=== PATIENT | female | born 1945 | race Caucasian/White ===

== ENCOUNTER 2017-06-23 09:45 | Outpatient (CLI) | payer MEDICARE, BC ==
[2017-06-23] VITALS (14 sets, daily range): BP systolic 133–170; BP diastolic 57–91
[~2017-06-23] VITALS: Ht 160 cm; Wt 75.3 kg
[2017-06-23 10:37] LABS: BASO # 0.1 x10^3/uL (0.0-0.2); BASO % 1 % (0-3); EOS % 2 % (0-3); HEMOGLOBIN 15.3 g/dL (12.0-15.5); LYMPH # 1.8 x10^3/uL (1.0-4.8); LYMPH % 22 % (24-48); MEAN CORPUSCULAR HEMOGLOBIN 31 pg (25-35); MEAN CORPUSCULAR HGB CONC 33 g/dL (31-37); MEAN CORPUSCULAR VOLUME 92 fL (79-100); MONO % 7 % (0-9); NEUT % 68 % (31-73); PLATELET COUNT 288 x10^3/uL (140-400); RED CELL DISTRIBUTION WIDTH 13.3 % (11.5-14.5); WHITE BLOOD COUNT 8.1 x10^3/uL (4.0-11.0)
[2017-06-23 10:44] LABS: CALCIUM 9.1 mg/dL (8.5-10.1); CREATININE 0.6 mg/dL (0.6-1.0); GFR 98.3; POTASSIUM 3.9 mmol/L (3.5-5.1)
[2017-06-23] MEDS ORDERED: ASPI-612 PO (10:45)
[2017-06-23] MEDS ORDERED: TIOT18CA IH (10:45)
[2017-06-23] MEDS ORDERED: AMLO10TA2 PO (10:45)
[2017-06-23] MEDS ORDERED: MULT-697 PO (10:45)
[2017-06-23] MEDS ORDERED: ALEN70TA3 PO (10:45)
[2017-06-23] MEDS ORDERED: CALC-109 PO (10:45)
[2017-06-23] MEDS ORDERED: ATOR20TA58 PO (10:45)
[2017-06-23 10:51] LABS: ALBUMIN 4.1 g/dL (3.4-5.0); TOTAL BILIRUBIN 0.4 mg/dL (0.2-1.0); TOTAL PROTEIN 8.1 g/dL (6.4-8.2)
[2017-06-23 11:00] LABS: PROTHROMBIN TIME PATIENT 12.5 SEC (11.7-14.0)
[2017-06-23] MEDS ORDERED: LIDOCAINE WITH 8.4% SOD BICARB 3 ML DISP.SYRIN. IJ ONE ×2 (11:11→12:15)
[2017-06-23] MEDS ORDERED: fentaNYL PF VIAL 100 MCG/2 ML VIAL ONE (11:33)
[2017-06-23] MEDS ORDERED: NALOXONE 0.4 MG/ML VIAL. ONE (11:33)
[2017-06-23] MEDS ORDERED: FLUMAZENIL 0.5 MG/5 ML VIAL. IV ONE (11:33)
[2017-06-23] MEDS ORDERED: MIDAZOLAM HCL/PF 2 MG/2 ML VIAL. ONE (11:34)
[2017-06-23] MEDS ORDERED: MIDAZOLAM HCL/PF 2 MG/2 ML VIAL. IV ONE (12:15)
[2017-06-23] MEDS ORDERED: fentaNYL PF VIAL 100 MCG/2 ML VIAL IV ONE (12:15)
--- NOTE | 2017-06-23 17:19 | RAD ---
CT-guided biopsy of expansile lesion, right rib. 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 Discussion: The risks and benefits of the procedure discussed the patient. Informed consent was obtained. The patient was brought to the CT scanner and placed in the prone position. Timeout procedure was performed. The right chest was prepped and draped using sterile barrier technique. All elements of maximal sterile barrier technique including the use of a cap, mask, sterile gown, sterile gloves, large sterile sheet, appropriate hand hygiene, and 2% chlorhexidine for cutaneous antisepsis (or acceptable alternative antiseptic per current guidelines) were followed for this procedure. CT imaging was obtained redemonstrating expansile lesion in the right sixth rib laterally. Once an appropriate site for skin entry been selected 1% lidocaine without epinephrine was administered for local anesthesia. A 17-gauge was advanced into the lesion. Multiple core biopsies were obtained. Relatively scant material was collected, however given size of lesion in proximity to the lung larger, more aggressive biopsy devices could not safely be used. The needle was removed and manual pressure held to achieve hemostasis. Follow-up CT imaging demonstrated no immediate complications. Impression: CT-guided biopsy expansile lesion right sixth rib. PQRS Compliance Statement: One or more of the following individualized dose reduction techniques were utilized for this examination: 1. Automated exposure control 2. Adjustment of the mA and/or kV according to patient size 3. Use of iterative reconstruction technique
== END 2017-06-23 14:00 | disposition home or self-care (01) ==
LOC: INTRAD 09:45
PROVIDERS: ATTEND Internal Medicine Critical Care Medicine
DX: M89.9 Disorder of bone, unspecified (principal); E78.00 Pure hypercholesterolemia, unspecified; I25.10 Atherosclerotic heart disease of native coronary artery without angina pectoris; I10 Essential (primary) hypertension; F17.200 Nicotine dependence, unspecified, uncomplicated; J43.9 Emphysema, unspecified; Z79.01 Long term (current) use of anticoagulants; Z98.51 Tubal ligation status
CPT/HCPCS: 20220; 36415; 77012; 80053; 85025; 85610; 99152; 99153; J2250; J3010

== ENCOUNTER → 2017-07-20 | Outpatient (CLI) | payer MEDICARE, BC | END | disposition home or self-care (01) | LOC: PETSC 15:38 | DX: C79.51 Secondary malignant neoplasm of bone (principal); C34.90 Malignant neoplasm of unspecified part of unspecified bronchus or lung | CPT/HCPCS: 78815; A9552 ==

== ENCOUNTER → 2017-07-21 | Outpatient (CLI) | payer MEDICARE, BC ==
[2017-07-21] MEDS: GADOBUTROL 7.5 MMOL/7.5 ML VIAL IV (08:52)
== END | disposition home or self-care (01) ==
LOC: MRI 08:55
DX: C34.31 Malignant neoplasm of lower lobe, right bronchus or lung (principal); I73.89 Other specified peripheral vascular diseases; R90.82 White matter disease, unspecified
CPT/HCPCS: 70553; A9585

== ENCOUNTER → 2017-07-24 | Outpatient (CLI) | payer MEDICARE, BC | END | disposition home or self-care (01) | LOC: MAMMO 10:59 | DX: Z12.31 Encounter for screening mammogram for malignant neoplasm of breast (principal) | CPT/HCPCS: 77067 ==

== ENCOUNTER → 2017-07-27 | Outpatient (CLI) | payer MEDICARE, BC | END | disposition home or self-care (01) | LOC: MAMMO 12:07 | DX: R92.8 Other abnormal and inconclusive findings on diagnostic imaging of breast (principal) | CPT/HCPCS: 77065 ==

== ENCOUNTER 2017-08-09 07:37 | Outpatient (CLI) | payer MEDICARE, BC ==
[2017-08-09 08:04] LABS: ADD MAN DIFF? NO
[2017-08-09 08:19] LABS: BASO # 0.1 x10^3/uL (0.0-0.2); BASO % 1 % (0-3); EOS # 0.2 x10^3/uL (0.0-0.7); EOS % 2 % (0-3); HEMATOCRIT 41.8 % (36.0-47.0); HEMOGLOBIN 13.9 g/dL (12.0-15.5); LYMPH # 1.7 x10^3/uL (1.0-4.8); LYMPH % 20 % (24-48); MEAN CORPUSCULAR HEMOGLOBIN 30 pg (25-35); MEAN CORPUSCULAR HGB CONC 33 g/dL (31-37); MEAN CORPUSCULAR VOLUME 91 fL (79-100); MONO # 0.6 x10^3/uL (0.0-1.1); MONO % 8 % (0-9); NEUT # 5.7 x10^3uL (1.8-7.7); NEUT % 69 % (31-73); PLATELET COUNT 262 x10^3/uL (140-400); RED BLOOD COUNT 4.59 x10^6/uL (3.50-5.40); RED CELL DISTRIBUTION WIDTH 13.3 % (11.5-14.5); WHITE BLOOD COUNT 8.3 x10^3/uL (4.0-11.0)
[2017-08-09 08:25] LABS: PARTIAL THROMBOPLASTIN TIME 41 SEC (24-38); PROTHROMBIN TIME PATIENT 12.3 SEC (11.7-14.0)
[2017-08-09] MEDS ORDERED: LIDOCAINE WITH 8.4% SOD BICARB 3 ML DISP.SYRIN. ×4 (09:18→09:48)
[2017-08-09] MEDS ORDERED: fentaNYL PF VIAL 100 MCG/2 ML VIAL ×2 (09:31)
[2017-08-09] MEDS ORDERED: NALOXONE 0.4 MG/ML VIAL. ×2 (09:31)
[2017-08-09] MEDS ORDERED: FLUMAZENIL 0.5 MG/5 ML VIAL. IV ×2 (09:31)
[2017-08-09] MEDS ORDERED: MIDAZOLAM HCL/PF 2 MG/2 ML VIAL. ×2 (09:31)
[2017-08-09] MEDS: MIDAZOLAM HCL/PF 2 MG/2 ML VIAL. IV ×2 (10:06)
[2017-08-09] MEDS: fentaNYL PF VIAL 100 MCG/2 ML VIAL IV ×2 (10:06)
[2017-08-09] MEDS: LIDOCAINE WITH 8.4% SOD BICARB 3 ML DISP.SYRIN. IJ ×2 (10:07)
== END 2017-08-09 11:05 | disposition home or self-care (01) ==
LOC: INTRAD 07:37
DX: M89.9 Disorder of bone, unspecified (principal); Z85.3 Personal history of malignant neoplasm of breast; E78.00 Pure hypercholesterolemia, unspecified; I25.10 Atherosclerotic heart disease of native coronary artery without angina pectoris; I10 Essential (primary) hypertension; F17.200 Nicotine dependence, unspecified, uncomplicated; Z98.51 Tubal ligation status; Z79.01 Long term (current) use of anticoagulants
CPT/HCPCS: 20220; 36415; 77012; 81325; 85025; 85610; 85730; 88271; 88274; 88275; 88305; 88311; 88360; 99152; 99153; J2250; J3010

== ENCOUNTER 2017-08-24 06:35 | Outpatient (CLI) | payer MEDICARE, BC ==
[2017-08-24 07:13] LABS: ADD MAN DIFF? NO
[2017-08-24 07:18] LABS: BASO % 0 % (0-3); EOS # 0.1 x10^3/uL (0.0-0.7); EOS % 1 % (0-3); HEMATOCRIT 42.8 % (36.0-47.0); HEMOGLOBIN 14.3 g/dL (12.0-15.5); LYMPH % 12 % (24-48); MEAN CORPUSCULAR HEMOGLOBIN 31 pg (25-35); MEAN CORPUSCULAR HGB CONC 34 g/dL (31-37); MEAN CORPUSCULAR VOLUME 91 fL (79-100); MONO # 0.3 x10^3/uL (0.0-1.1); MONO % 4 % (0-9); NEUT # 6.7 x10^3uL (1.8-7.7); NEUT % 83 % (31-73); PLATELET COUNT 257 x10^3/uL (140-400); RED CELL DISTRIBUTION WIDTH 13.4 % (11.5-14.5); WHITE BLOOD COUNT 8.1 x10^3/uL (4.0-11.0)
[2017-08-24 07:30] LABS: PROTHROMBIN TIME PATIENT 12.6 SEC (11.7-14.0)
[2017-08-24 07:51] LABS: ANION GAP 6 (6-14); BLOOD UREA NITROGEN 13 mg/dL (7-20); CARBON DIOXIDE 30 mmol/L (21-32); CHLORIDE 104 mmol/L (98-107); CREATININE 0.7 mg/dL (0.6-1.0); GFR 82.3; GLUCOSE 123 mg/dL (70-99); POTASSIUM 3.8 mmol/L (3.5-5.1); SODIUM 140 mmol/L (136-145)
[2017-08-24] MEDS ORDERED: LIDOCAINE 2%/EPI 1:100,000 20 ML VIAL. ×2 (08:39)
[2017-08-24] MEDS ORDERED: HEPARIN PF 500 UNIT/5 ML DISP.SYRIN. IV ×2 (08:39)
[2017-08-24] MEDS ORDERED: VANCOMYCIN 1GM IVPB FOR OMNI 250 ML ×2 (08:39)
[2017-08-24] MEDS ORDERED: fentaNYL PF VIAL 100 MCG/2 ML VIAL ×2 (08:53)
[2017-08-24] MEDS ORDERED: MIDAZOLAM HCL/PF 2 MG/2 ML VIAL. ×4 (08:53→09:11)
[2017-08-24] MEDS: VANCOMYCIN 1GM IVPB FOR OMNI 250 ML IRR ×2 (09:15)
[2017-08-24] MEDS: LIDOCAINE 2%/EPI 1:100,000 20 ML VIAL. IJ ×2 (09:29)
[2017-08-24] MEDS: MIDAZOLAM HCL/PF 2 MG/2 ML VIAL. IV ×2 (09:31)
[2017-08-24] MEDS: HEPARIN PF 500 UNIT/5 ML DISP.SYRIN. IV ×2 (09:31)
[2017-08-24] MEDS: fentaNYL PF VIAL 100 MCG/2 ML VIAL IV ×2 (09:32)
== END 2017-08-24 11:48 | disposition home or self-care (01) ==
LOC: INTRAD 06:35
DX: C34.90 Malignant neoplasm of unspecified part of unspecified bronchus or lung (principal); I25.10 Atherosclerotic heart disease of native coronary artery without angina pectoris; E78.00 Pure hypercholesterolemia, unspecified; F17.200 Nicotine dependence, unspecified, uncomplicated; J43.9 Emphysema, unspecified; Z98.51 Tubal ligation status; Z79.01 Long term (current) use of anticoagulants
CPT/HCPCS: 36415; 36561; 76937; 77001; 80048; 85025; 85610; 99152; 99153; C1751; C1769; C1892; J0690; J2250; J3010; J3370; J3490

== ENCOUNTER → 2017-10-19 | Outpatient (CLI) | payer MEDICARE, BC | END | disposition home or self-care (01) | LOC: PETSC 07:42 | DX: C34.90 Malignant neoplasm of unspecified part of unspecified bronchus or lung (principal) | CPT/HCPCS: 78815; A9552 ==

== ENCOUNTER → 2017-12-21 | Outpatient (CLI) | payer MEDICARE, BC | END | disposition home or self-care (01) | LOC: PETSC 08:06 | DX: C34.31 Malignant neoplasm of lower lobe, right bronchus or lung (principal); I10 Essential (primary) hypertension; E78.5 Hyperlipidemia, unspecified; E78.00 Pure hypercholesterolemia, unspecified; R53.83 Other fatigue | CPT/HCPCS: 78815; A9552 ==

== ENCOUNTER → 2018-02-22 | Outpatient (CLI) | payer MEDICARE, BC ==
[2017-08-24 11:30] VITALS: BP 153/69
[~2018-02-22] MED LIST: ALEN70TA3 PO; AMLO10TA2 PO; AMLO1TAB14 PO; ASCO-151 PO; ASPI-612 PO; ATOR20TA58 PO; CALC-109 PO; CLON0.1T PO; DEXA4TAB PO; FOLI1TAB16 PO; KRIL1CAP23 PO; LIDO30CR TP; LOSA1TAB25 PO; MULT-697 PO; MV-M1TAB19 PO; ONDA4TAB12 PO; TIOT18CA IH
--- NOTE | 2018-02-22 12:18 | RAD ---
FDG tumor localization scan, PET/CT, 02/22/2018: History: Restaging lung cancer Following IV injection of 14.3 mCi of 18 F-FDG, imaging was performed from the skull base to the proximal thighs. The noncontrast CT component was performed for attenuation correction and anatomic localization purposes rather than for primary diagnosis. The patient's blood glucose level at time of injection was 115 MG/DL. Comparison is made to a study from 12/21/2017. There is a persistent right inferolateral chest wall mass involving 2 ribs. It is of similar size compared to 12/21/2017 exam. The maximum SUV is 19.1, similar to the value of 18.4 obtained on the previous study. The nearby small parenchymal opacity seen on the previous study has decreased in size. It demonstrates a maximum SUV of 2.7 compared to a value of 3.6 on the previous study. It is now semisolid in nature. The small groundglass opacity seen more medially in the right middle lobe on the previous study has also regressed. There is a new focus of hypermetabolic activity along the superior aspect of the right hilum demonstrating maximum SUV of 4.5. No definite underlying node or mass can be from the unopacified vascular structures at the right hilum on the noncontrast CT component. Additional small areas of borderline increased FDG uptake are seen along the inferior aspect of the right hilum demonstrate a maximum SUV of 3.0. The tiny nodule seen medially in the left upper lobe on the previous study has decreased in size. Its maximum SUV is now 1.5 compared to a value of 3.3 on the previous study. Minimally increased FDG uptake has developed in the left lower lobe. The CT component demonstrates only faint ill-defined groundglass type opacity. This is probably an inflammatory finding. Normal GI tract and urinary tract activity is evident in the abdomen pelvis. No hypermetabolic abdominal or pelvic process is seen. No abnormal neck activity is evident. Scattered sclerotic foci in the bones appear unchanged. These do not demonstrate increased FDG uptake. No new hypermetabolic bony metastases are seen. IMPRESSION: 1. Unchanged hypermetabolic right lateral chest wall mass. 2. A nearby mildly hypermetabolic pulmonary nodule has regressed since the 12/21/2017 study. 3. A tiny left upper lobe hypermetabolic nodule has also regressed. 4. New small hypermetabolic focus at the right hilum, probably representing a hypermetabolic lymph node. 5. Stable blastic bony metastases without abnormal FDG uptake.
== END | disposition home or self-care (01) ==
LOC: PETSC 08:37
PROVIDERS: ATTEND Internal Medicine Hematology & Oncology
DX: C34.31 Malignant neoplasm of lower lobe, right bronchus or lung (principal); C79.51 Secondary malignant neoplasm of bone; I10 Essential (primary) hypertension; E78.5 Hyperlipidemia, unspecified; E78.00 Pure hypercholesterolemia, unspecified; J43.9 Emphysema, unspecified; I25.10 Atherosclerotic heart disease of native coronary artery without angina pectoris; R91.1 Solitary pulmonary nodule; Z85.3 Personal history of malignant neoplasm of breast
CPT/HCPCS: 78815; A9552

== ENCOUNTER → 2018-03-19 | Outpatient (CLI) | payer MEDICARE, BC ==
[2017-08-24 11:30] VITALS: BP 153/69
[~2018-03-19] MED LIST changes: -AMLO10TA2 PO; +AMLO10TA6 PO; +CONTRAST GIVEN. MC PRN; +IOHEXOL 300 MG/ML 100ML VIAL. IV ONE
--- NOTE | 2018-03-19 15:45 | RAD ---
PQRS Compliance Statement: One or more of the following individualized dose reduction techniques were utilized for this examination: 1. Automated exposure control 2. Adjustment of the mA and/or kV according to patient size 3. Use of iterative reconstruction technique CT CHEST WITH CONTRAST, PULMONARY ANGIOGRAM History: SOB, lung cancer, currently on treatment. Comparison: CT chests with and without contrast, June 09, 2017. FDG PET/CT, skull base to upper thighs, February 22, 2018. Technique: Helical CT of the chest was performed after the administration of 75 cc of Omnipaque 300 intravenous contrast according to PE protocol. Axial and coronal reconstructions were obtained. 3-D MIP images were constructed to better evaluate the pulmonary arteries. Findings: Pulmonary arteries are adequately opacified. There is no evidence of pulmonary embolism. No thoracic aortic dissection. There is moderate narrowing at the origin of the SMA. There is right chest Port-A-Cath. No mediastinal adenopathy. Coronary artery disease. Cardiac size normal, no pericardial effusion. The central airways are patent. There is moderate centrilobular emphysema. There is mild dependent atelectasis or scarring. There is nodular opacity in the lateral right lower lobe, image 108. The destructive soft tissue density mass of the right lateral sixth rib measures about 3.9 cm AP by 1.7 cm transverse, not significantly change from prior study. Stable nodularity of the right adrenal gland. Unchanged cystic lesion of the pancreas tail. There are sclerotic metastases of the thoracic spine. There is compression fracture of the T5 vertebral body that does not appear acute. IMPRESSION: 1. There is no CT evidence of pulmonary embolus. 2. Destructive soft tissue mass of the right lateral sixth rib is not significantly changed. 3. Osteoblastic bone metastases. 4. Moderate centrilobular emphysema. Electronically signed by: Ady Chavarria MD (03/19/2018 3:42 PM) [id number]
--- NOTE | 2018-03-19 15:51 | RAD ---
PQRS Compliance Statement: One or more of the following individualized dose reduction techniques were utilized for this examination: 1. Automated exposure control 2. Adjustment of the mA and/or kV according to patient size 3. Use of iterative reconstruction technique CT CHEST WITHOUT AND WITH CONTRAST, CT PULMONARY ANGIOGRAM History: SOB, lung cancer, currently on treatment. Comparison: CT chest with and without contrast, June 09, 2017. FDG PET/CT, skull base to upper thighs, February 22, 2018. Technique: Helical CT imaging of the chest is performed without IV contrast. Helical CT of the chest was performed after the administration of 75 cc of Omnipaque 300 intravenous contrast according to PE protocol. Axial and coronal reconstructions were obtained. 3-D MIP images were constructed to better evaluate the pulmonary arteries. Findings: Pulmonary arteries are adequately opacified. There is no evidence of pulmonary embolism. No thoracic aortic dissection. There is no intramural hematoma in the thoracic aorta on the precontrast images. There is moderate narrowing at the origin of the SMA. There is right chest Port-A-Cath. No mediastinal adenopathy. Coronary artery disease. Cardiac size normal, no pericardial effusion. The central airways are patent. There is moderate centrilobular emphysema. There is mild dependent atelectasis or scarring. There is nodular opacity in the lateral right lower lobe, image 108. The destructive soft tissue density mass of the right lateral sixth rib measures about 3.9 cm AP by 1.7 cm transverse, not significantly change from prior study. Stable nodularity of the right adrenal gland. Unchanged cystic lesion of the pancreas tail. There are sclerotic metastases of the thoracic spine. There is compression fracture of the T5 vertebral body that does not appear acute. IMPRESSION: 1. There is no CT evidence of pulmonary embolus. 2. Destructive soft tissue mass of the right lateral sixth rib is not significantly changed. 3. Osteoblastic bone metastases. 4. Moderate centrilobular emphysema. Electronically signed by: Ady hCavarria MD (03/19/2018 3:47 PM) [id number]
== END | disposition home or self-care (01) ==
LOC: CT 14:05
PROVIDERS: ATTEND Internal Medicine Hematology & Oncology
DX: C79.51 Secondary malignant neoplasm of bone (principal); C34.31 Malignant neoplasm of lower lobe, right bronchus or lung; J34.2 Deviated nasal septum; I10 Essential (primary) hypertension; E78.5 Hyperlipidemia, unspecified; E78.00 Pure hypercholesterolemia, unspecified; Z79.01 Long term (current) use of anticoagulants; Z87.891 Personal history of nicotine dependence; Z85.3 Personal history of malignant neoplasm of breast
CPT/HCPCS: 71250; 71275; Q9967

== ENCOUNTER → 2018-05-17 | Outpatient (CLI) | payer MEDICARE, BC ==
[2017-08-24 11:30] VITALS: BP 153/69
[~2018-05-17] MED LIST changes: -CONTRAST GIVEN. MC PRN; -IOHEXOL 300 MG/ML 100ML VIAL. IV ONE
--- NOTE | 2018-05-17 11:45 | RAD ---
CLINICAL HISTORY: History of lung cancer. INDICATION: Restaging. COMPARISON: Head CT 02/22/2018, 12/21/2017, CT chest 03/19/2018 TECHNIQUE: Location of scan: [facility] Radiopharmaceutical Dose: 13.37 mCi F-18 FDG intravenous Blood glucose at time of study: 137 FDG uptake time = 60 minutes. Images were obtained from the mid head to the mid thighs. A low dose, noncontrast CT study was performed for the purpose of attenuation correction and anatomic localization. FINDINGS: Head and Neck: Physiologic activity is seen within the head and neck. Chest: Right inferolateral chest wall mass involving 2 right ribs is similar in size with an SUV max of 16.6, previously 19.1 and prior to 18.4. The adjacent groundglass opacity has since decreased in size and is less conspicuous, with an SUV max of 1.2. The previously seen medial right middle lobe groundglass opacity is not definitively seen on today's exam. The right suprahilar focus of hypermetabolic activity has a maximum SUV of 3.2, previously 4.5. Prominent pulmonary vessels are seen in this region and no discrete associated mass is identified, possibly obscured by the associated vessels/hilar structures. The previously seen mild increased FDG uptake in the left lower lobe has essentially resolved with improvement in the CT opacities. Abdomen and Pelvis: There is normal GI and urinary tract activity within the abdomen and pelvis. No definite abnormal uptake is seen within the solid organs. Skeletal: Scattered sclerotic foci within the osseous structures are again seen. No new hypermetabolic bony metastasis is seen. Reference SUV Values: Mediastinal SUV Max: 3.2 Liver SUV Max: 3.4 IMPRESSION: 1. Right lateral chest wall mass is stable to borderline decreased in metabolic activity. 2. The previously seen hypermetabolic pulmonary nodules have since regressed without definite increased metabolic activity. 3. The previously seen small hypermetabolic focus in the right hilum is borderline evident relative to background mediastinal activity. No definite associated lymph node is identified. 4. Stable blastic bony metastases are seen. However there is no new focus of abnormal skeletal metabolic activity. Radiation Dosimetry: The radiopharmaceutical used for this exam delivers approximately 0.7 mSv/mCi (70 mRem/mCi) Source: ICRP Publication 106
== END | disposition home or self-care (01) ==
LOC: PETSC 07:11
PROVIDERS: ATTEND Internal Medicine Hematology & Oncology
DX: C34.31 Malignant neoplasm of lower lobe, right bronchus or lung (principal)
CPT/HCPCS: 78815; A9552

== ENCOUNTER → 2018-08-24 | Outpatient (CLI) | payer MEDICARE, BC ==
[2017-08-24 11:30] VITALS: BP 153/69
[~2018-08-24] MED LIST changes: -AMLO10TA6 PO; +AMLO10TA8 PO; +LOSA1TAB22 PO
--- NOTE | 2018-08-24 12:13 | RAD ---
MRI of the lumbar spine without contrast 08/24/2018 CLINICAL HISTORY: Low back pain which radiates down the left leg. History of lung cancer. TECHNIQUE: Unenhanced T1-weighted and T2-weighted sagittal and axial and inversion recovery sagittal images of the lumbar spine were obtained. FINDINGS: Comparison is made to the PET/CT scan dated 05/17/2018. Very mild S-shaped curvature of the thoracolumbar spine is seen. Degenerative signal changes and loss of height are seen involving all of the disks of the lumbar spine. Degenerative signal changes are seen within the marrow surrounding these discs. The conus medullaris is normal in morphology, position, and signal characteristics. Prominent perineural cysts are seen within the sacral spinal canal. These measure 5 mm to 3 cm in size. Multiple rounded areas of decreased signal intensity are seen scattered throughout the visualized thoracic and lumbar vertebral bodies along with the visualized left and right ilium on the T1-weighted images. These demonstrate increased signal intensity on the inversion recovery and T2-weighted images. They are consistent with metastasis. They vary in size from 4 mm to 2 cm. No extension of tumor into the central spinal canal seen. No pathologic compression fracture is seen. A 1.8 cm rounded high signal intensity lesion is seen involving the midpole of the left kidney on the T2-weighted images. This likely represents a cyst. At the L1-2, L2-3 and L3-4 disc spaces there are minimal to mild generalized disc bulges. Degenerative changes are seen involving the facet joints bilaterally. There is mild ligament flavum hypertrophy bilaterally. These findings do not result in significant central spinal canal or neural foraminal stenosis. At the L4-5 disc space there is a mild to moderate generalized disc bulge. Degenerative changes are seen involving the facet joints, left greater than right. There is mild to moderate ligamentum flavum hypertrophy bilaterally. These findings when combined result in mild to moderate central spinal canal stenosis. Mild left neural foraminal stenosis is seen. The right neural foramen is patent. At the L5-S1 disc space there is a mild generalized disc bulge. Degenerative changes are seen involving the facet joints bilaterally. There is mild ligamentum flavum hypertrophy bilaterally. These findings when combined do not result in significant central spinal canal stenosis. Mild left neural foraminal stenosis is seen. The right neural foramen is patent. IMPRESSION: 1. Multiple metastasis are seen as outlined above. No extension of tumor into the central spinal canal is seen. 2. The changes of degenerative disc disease are seen involving the lumbar spine. These findings result in mild to moderate central spinal canal stenosis at L4-5. Mild left neural foraminal stenosis is seen at L4-5 and L5-S1. Electronically signed by: Naldo Spear MD (08/24/2018 12:11 PM) [id number]
== END | disposition home or self-care (01) ==
LOC: MRI 09:07
PROVIDERS: ATTEND Orthopaedic Surgery
DX: C79.51 Secondary malignant neoplasm of bone (principal); M47.896 Other spondylosis, lumbar region; M48.061 Spinal stenosis, lumbar region without neurogenic claudication; M48.07 Spinal stenosis, lumbosacral region; Z85.118 Personal history of other malignant neoplasm of bronchus and lung
CPT/HCPCS: 72148

== ENCOUNTER → 2018-08-30 | Outpatient (CLI) | payer MEDICARE, BC ==
[2017-08-24 11:30] VITALS: BP 153/69
--- NOTE | 2018-08-30 10:37 | RAD ---
PET/CT imaging from the skull through the midthigh History: History of lung cancer. Restaging. Comparison: May 17, 2018 Technique: PET examination was performed from the skull base to the proximal thighs after intravenous administration of 12.4 mCi Fluorine [address] scan was performed for the purposes of localization and attenuation, not for primary diagnosis. Blood glucose level at time of injection was 106 mg/dl. PQRS Compliance Statement: One or more of the following individualized dose reduction techniques were utilized for this examination: 1. Automated exposure control 2. Adjustment of the mA and/or kV according to patient size 3. Use of iterative reconstruction technique Findings: Head and neck: Physiologic activity is evident. No new soft tissue mass is seen. Chest: There is a subcarinal lymph node which measures 12 mm in size. It has not changed significantly in size. It measures Max SUV 3.7. No new or enlarging thoracic lymphadenopathy is seen otherwise. Again seen is a right lateral chest wall mass encompassing 2 adjacent right ribs. This mainly involves the right lateral sixth rib but also involves the right lateral fifth rib. Mass involving the right lateral sixth rib measures 5.3 cm in AP dimension 3.7 cm in transverse dimension. This has increased in size from the previous study. The AP and transverse dimensions were 4.0 cm and 2.7 cm previously. The max SUV is 21.6. Max SUV on the previous report was 16.6. There is some mild adjacent groundglass lung infiltrate which has not changed significantly and is not hypermetabolic. Otherwise no new lung nodules or hypermetabolic lung nodules are seen. Abdomen and pelvis: Physiologic activity is seen involving the urinary tract and GI tract. No new adrenal nodule is evident. No new hepatic lesion is seen. Musculoskeletal: In addition to the rib lesions discussed above of the right lateral chest wall, additional bilateral rib lesions are seen and there are spine lesions apparent. These were seen previously. There are pelvic lesions which were seen previously. There is a lateral left clavicular lesion. This was seen previously. This has not changed significantly. IMPRESSION: Increase in size of right lateral chest wall lesion involving the right lateral sixth rib with a corresponding increase in max SUV. The other findings are stable.
== END | disposition home or self-care (01) ==
LOC: PETSC 07:10
PROVIDERS: ATTEND Internal Medicine Hematology & Oncology
DX: C34.31 Malignant neoplasm of lower lobe, right bronchus or lung (principal); R53.83 Other fatigue; R91.8 Other nonspecific abnormal finding of lung field; R19.07 Generalized intra-abdominal and pelvic swelling, mass and lump; R59.0 Localized enlarged lymph nodes
CPT/HCPCS: 78815; A9552

== ENCOUNTER → 2018-11-29 | Outpatient (CLI) | payer MEDICARE, BC ==
[2017-08-24 11:30] VITALS: BP 153/69
--- NOTE | 2018-11-29 12:10 | RAD ---
FDG tumor localization scan, PET/CT, 11/29/2018: History: Restaging right lung cancer Following IV injection of 13.1 mCi of 18 F-FDG, imaging was performed from the skull base to the proximal thighs. The noncontrast CT component was performed for attenuation correction and anatomic localization purposes rather than for primary diagnosis. The patient's blood glucose level the time of injection was 113 M.D./DL. The mass involving the right lateral chest wall has decreased in size since 08/30/2018. It currently measures 18 mm in greatest width compared to a measurement of 29 mm on the previous study at the same level. There are underlying mixed lytic and sclerotic changes involving 2 ribs. The maximum SUV of this process is currently 5.5 compared to a value of 21.6 on the previous study. There is an underlying streaky pulmonary opacity demonstrating mildly increased FDG uptake with a maximum SUV of 4.2. There is a tiny residual focus of increased activity at the subcarinal level currently demonstrate a maximum SUV of 3.4 similar to the value of 3.7 obtained on the previous study. This corresponds to a lymph node measuring 6 mm in short axis dimension compared to a measurement of 7 to 8 mm on the previous study. Low level FDG uptake at the right hilum is similar to the mediastinal background activity Physiologic FDG uptake is present in the neck. No hypermetabolic neck lesion is seen. Normal GI tract and urinary tract activity is present in the abdomen and pelvis. There is a hypermetabolic left adrenal nodule measuring 13 mm in width compared to a measurement of 10 mm on the previous study. Its maximum SUV is 8.6. On the previous study its maximum SUV was 4.4. There are several small foci of increased activity in the pelvis, some of these appear to be related to bowel. There is a small focus of increased activity just to the right of midline in the mid pelvis which appears to correspond to a cluster of tiny nodes. The maximum SUV is 4.9. This is best seen on fused axial image #38. There are multiple scattered sclerotic foci in the bones best seen in the spine and pelvis. These appear unchanged and do not demonstrate avid FDG uptake. IMPRESSION: Mixed response to therapy with: 1. Interval decrease in size and hypermetabolic activity of the right lateral chest wall mass since 08/30/2018. 2. Stable tiny mildly hypermetabolic subcarinal lymph node. 3. Enlarging hypermetabolic left adrenal nodule presumably on a metastatic basis. 4. New small hypermetabolic node cluster in the mid pelvis. 5. Stable quiescent blastic osseous metastases.
== END | disposition home or self-care (01) ==
LOC: PETSC 09:31
PROVIDERS: ATTEND Internal Medicine Hematology & Oncology
DX: C34.31 Malignant neoplasm of lower lobe, right bronchus or lung (principal); R91.8 Other nonspecific abnormal finding of lung field; E27.8 Other specified disorders of adrenal gland
CPT/HCPCS: 78815; A9552

== ENCOUNTER → 2019-02-28 | Outpatient (CLI) | payer MEDICARE, BC ==
[2017-08-24 11:30] VITALS: BP 153/69
[~2019-02-28] MED LIST changes: +DENO120V SQ; +PEMB100V IV; +PEME100V IV
--- NOTE | 2019-03-01 10:14 | RAD ---
Examination: PET W CT SKULL TO MIDTHIGH History: Right lung cancer restaging Comparison/Correlation: 11/02/2018 PET/CT exam FINDINGS: Net dose 14 mCi F-18 FDG was administered intravenously for purposes of PET/CT exam. Blood glucose level at the time of radiotracer administration was 122 mg/dL. Imaging was performed from the skull base to the proximal thighs. Hepatic reference uptake is SUV max of 2.6 . Uptake of radiotracer involving visualized head and neck is unremarkable. Right-sided infusion port with associated catheter seen. Small right pleural effusion is present in the interval. The right lower lateral lung field, there is a medial right midthoracic mass associated with bony destructive involvement of the right sixth rib. Destructive findings of the right sixth rib are similar to previous exam but this pleural-based mass adjacent to it is new in the interval measuring up to 2.8 cm anteroposterior by 1.8 cm transverse with SUV max of 6. Right lateral basilar linear density which may represent scarring is new since the previous exam with SUV max of up to 5. Subcarinal lymph node is present with SUV max of up to 5. This lymph node is more evident in the interval currently measuring measuring up to 1.1 cm x 0.6 cm. Edematous appearance of the right breast noted in the interval with skin thickening. Multiple scattered sclerotic metastatic lesions involving the spine and pelvic bones in particular are again noted without significant change. No new sclerotic lesions identified in the interval. No significant uptake involving the sclerotic lesions. Previously seen left adrenal mass is no longer evident. Small focus of intense uptake involving the anterior aspect of the left lower pelvic region is again noted. IMPRESSION: Interval development of a mass lesion which is pleural-based at the right mid thoracic level in the interval compatible with recurrence. Small new right pleural effusion. The structure along the right sixth rib again seen. No significant change in diffuse bony metastases. Subcarinal lymph node is identified and slightly increased in size in the interval with uptake similar to the prior exam. Resolution of previously present left adrenal mass. Edematous appearance of the right breast in the interval with skin thickening. Correlate with history of radiation therapy or other etiology. If there is no history of radiation therapy at this level, then further evaluation to considered to assess for possibility of inflammatory breast carcinoma other etiology. PQRS Compliance Statement: One or more of the following individualized dose reduction techniques were utilized for this examination: 1. Automated exposure control 2. Adjustment of the mA and/or kV according to patient size 3. Use of iterative reconstruction technique Electronically signed by: Baldomero Malhotra MD (03/01/2019 10:12 AM) [facility]
== END | disposition home or self-care (01) ==
LOC: PETSC 07:19
PROVIDERS: ATTEND Internal Medicine Hematology & Oncology
DX: C34.31 Malignant neoplasm of lower lobe, right bronchus or lung (principal)
CPT/HCPCS: 78815; A9552

== ENCOUNTER → 2019-03-08 | Outpatient (CLI) | payer MEDICARE, BC ==
[2017-08-24 11:30] VITALS: BP 153/69
--- NOTE | 2019-03-08 15:02 | RAD ---
DATE: 03/08/2019 12:41 PM EXAM: MAMMO RHONDA AILIN CRUZ, BREAST RIGHT HISTORY: Right breast pain, swelling for 2 weeks. History of malignancy COMPARISON: Prior mammogram 07/27/2017, 07/24/2017 Bilateral CC and MLO views of the breasts were performed. Bilateral breast tomosynthesis was performed in CC and MLO projections. This study was interpreted with the benefit of Computerized Aided Detection (CAD). FINDINGS: Breast Density: HETERO The breast parenchyma Is heterogeneously dense, which could reduce sensitivity of mammography. Breast parenchyma level C Compared to prior mammogram from July 2017, there has been interval increase in right breast skin thickening as well as increase in right breast density. Suspicious microcalcifications in the upper outer right breast are again seen, the posterior grouping is slightly more conspicuous. Right Port-A-Cath is seen. No suspicious masses, microcalcifications or architectural distortion is present in the left breast. The visualized axillae are unremarkable. IMPRESSION: 1. Right breast microcalcifications are suspicious. Stereotactic biopsy is recommended. 2. Diffuse right breast skin thickening and edema with increased right breast density, is nonspecific and may be seen with cellulitis, asymmetric CHF, lymphedema, post radiation change as well as inflammatory breast carcinoma. BI-RADS CATEGORY: 4 SUSPICIOUS ABNORMALITY- BIOPSY SHOULD BE CONSIDERED RECOMMENDED FOLLOW-UP: BIO BIOPSY RECOMMENDED. 1. Stereotactic biopsy of the right breast microcalcifications is recommended. 2. In addition, the diffuse right breast skin thickening and increased density is nonspecific but skin biopsy can be performed for the evaluation of inflammatory breast cancer PQRS compliance statement: Patient information was entered into a reminder system with a target due date for the next mammogram. Mammography is a sensitive method for finding small breast cancers, but it does not detect them all and is not a substitute for careful clinical examination. A negative mammogram does not negate a clinically suspicious finding and should not result in delay in biopsying a clinically suspicious abnormality. "Our facility is accredited by the [employer] Mammography Program."
== END | disposition home or self-care (01) ==
LOC: MAMMO 13:29
PROVIDERS: ATTEND Internal Medicine Hematology & Oncology
DX: N64.4 Mastodynia (principal); N63.10 Unspecified lump in the right breast, unspecified quadrant; Z85.3 Personal history of malignant neoplasm of breast
CPT/HCPCS: 76641; 77066; G0279; 77062

== ENCOUNTER → 2019-06-07 | Outpatient (CLI) | payer MEDICARE, BC ==
[2017-08-24 11:30] VITALS: BP 153/69
--- NOTE | 2019-06-07 14:30 | RAD ---
PET/CT imaging from the skull through the midthigh History: Restaging of lung cancer. Comparison: February 28, 2019 Technique: PET examination was performed from the skull base to the proximal thighs after intravenous administration of 15.6 mCi Fluorine [address] scan was performed for the purposes of localization and attenuation, not for primary diagnosis. Blood glucose level at time of injection was 116 mg/dl. PQRS Compliance Statement: One or more of the following individualized dose reduction techniques were utilized for this examination: 1. Automated exposure control 2. Adjustment of the mA and/or kV according to patient size 3. Use of iterative reconstruction technique Findings: HEAD AND NECK: No hypermetabolic activity is seen. No enlarged cervical lymphadenopathy is evident. No soft tissue mass is seen. CHEST: No hypermetabolic thoracic lymphadenopathy is evident. Again seen is an osseous metastatic lesion involving has increased 9.4. The right sixth rib with associated pleural-based mass with a max SUV of 9.4. Size of the pleural-based mass seen previously is smaller in size now measuring 2.4 cm in AP dimension and 1.3 cm in transverse dimension. However, there is an increase in plaque-like pleural thickening anteriorly and posteriorly from this mass involving the pleural space. There is adjacent peripheral right lung base infiltrate with a maximum SUV of 2.5. This consolidative infiltrate appears less prominent than on the previous study. Groundglass lung infiltrate is now apparent throughout the right lung field. On series 3 image 96, there is a new posterior right lower lobe lung nodule measuring 9 mm. Nodule demonstrates a max SUV of 2.0. A small right-sided pleural effusion is seen and is not hypermetabolic. There is a new finding of a diffuse many peripheral lung infiltrate on the left side which max SUV of 5.1. ABDOMEN AND PELVIS: GI and physiologic activity is noted. No hepatic metastasis is seen. No enlarged abdominal or pelvic lymphadenopathy is seen. MUSCULOSKELETAL: Again seen are osseous metastatic lesions involving the right fifth rib and right seventh rib in addition to the right sixth rib dimension previously. There is a pathologic fracture of the lateral aspect of the right sixth rib. There is a small osseous metastasis involving the lateral aspect of the left sixth rib and osseous metastatic lesions seen involving the medial posterior aspect of left fifth C6 and seventh ribs. There is osseous metastatic lesion involving the inferior aspect of the right scapula and the lateral aspect of the left clavicle. Multiple lesions are seen involving the thoracic spine and sternum and the lumbar spine and the pelvic bones bilaterally. There are lesions involving the cervical spine as well. These are unchanged. The lesion within the inferior aspect of the right scapula demonstrates the greatest SUV with a max SUV of 2.9. IMPRESSION: The pleural-based mass in association with the osseous metastatic lesion of the right lateral sixth rib has decreased in size from the prior study but there is increase in plaque-like pleural extension anteriorly and posteriorly from this area. The max SUV has increased to 9.4. There is improvement of the plaque-like lateral right lower lobe lung infiltrate seen previously. There is a new small right lower lobe lung nodule. In addition, there is new confluent peripheral lung infiltrates involving the left upper lobe and left lower lobe which are hypermetabolic. This could be inflammatory or infectious or neoplastic in nature. Diffuse osseous metastatic disease has not changed significantly. There is a pathologic fracture of the lateral right sixth rib in association with the pleural-based mass. This was seen previously.
== END | disposition home or self-care (01) ==
LOC: PETSC 08:06
PROVIDERS: ATTEND Internal Medicine Hematology & Oncology
DX: C79.51 Secondary malignant neoplasm of bone (principal); C34.31 Malignant neoplasm of lower lobe, right bronchus or lung; J92.9 Pleural plaque without asbestos; R91.8 Other nonspecific abnormal finding of lung field
CPT/HCPCS: 78815; A9552